=== PATIENT | male | born 1980 | race American Indian/Alaskan Native ===

== ENCOUNTER 2019-08-13 09:40 | Emergency (ER) | payer SELFPAY ==
[2019-08-13 11:48] VITALS: BP 137/92
--- NOTE | 2019-08-13 11:52 | Emergency Department Report ---
Chief Complaint: Upper Respiratory Infection Stated Complaint: COVID EXPOSURE Time Seen by Provider: 08/13/19 11:46 - HPI History of Present Illness: Patient is a 39-year-old male who presents emergency room with complaints of generalized weakness, generalized fatigue, body aches, headache that began 2 days ago. He denies any fever, nausea, vomiting, diarrhea, chest pain, shortness of breath. He states that someone at his job has tested positive for COVID-19 and he was in contact with that person. He denies any past medical history. He states he last had a physical with his primary care doctor approximately a year ago and everything was normal. He denies any allergies to medications. He is a non-smoker. Vitals are stable Vitals were repeated 1 hour apart He has normal oxygen saturation, no tachycardia, afebrile Patient is maintaining sats on room air without difficulty on exam: Non toxic appearing, no acute distress atraumatic, normocephalic normal appearance of the eyes, PERRL, EOMI, no periorbital edema or ecchymosis moist mucus membranes, normal oropharynx, no tonsillar hypertrophy or exudates, normal nasal turbinates, normal TMs and canals bilaterally regular heart rate and rhythm, no gallops, no rubs, no murmurs breath sounds are clear bilaterally, no w/r/r, no stridor, no respiratory distress, no accessory muscle use A&O x4, no focal neuro deficit skin is warm, dry, intact Patient is presenting with viral-like symptoms He has no past medical history, his vitals are normal, he is a non-smoker, he is not obese Patient does not meet hospital protocol for testing or for admission He has no clinical signs of dehydration, he has no clinical signs of bacterial pneumonia Patient has had contact with a COVID-19 positive person Symptoms could be very likely related to COVID-19 as he has had a positive contact and we are currently in a COVID-19 pandemic Discussed supportive care and symptomatic treatment with patient Discussed in detail with patient strict return precautions, discussed self quarantine Patient referred to a primary care doctor Medical screening exam mentation performed and there is no threat to life or limb at this time - Exam Vital Signs: Vital Signs 08/13/19 10:09 Temperature 99.7 F H Pulse Rate 85 Respiratory 20 Rate Blood Pressure 133/81 O2 Sat by Pulse 98 Oximetry MSE screening note: Focused history and physical exam performed. ED Disposition for MSE Clinical Impression: Viral syndrome, Exposure to COVID-19 virus Disposition: Z- MED SCREENING EXAM-LEFT Is pt being admited?: No Does the pt Need Aspirin: No Condition: Stable Instructions: COVID-19, Viral Syndrome (ED) Additional Instructions: Please increase your water intake over the next several days. May take Tylenol as needed for headache or body aches or fever please follow-up with a primary care doctor in the next 2 to 3 days for reexamination. Return to emergency room immediately for any new or worsening symptoms including but not limited to difficulty breathing, shortness of breath, severe chest pain, unable to tolerate by mouth intake, etc. Please self quarantine for 2 weeks from the onset of your symptoms. Please do not go on public. If you are at home around others please wear a mask. If you need to cough or sneeze please do so in a napkin immediately throw it away and wash your hands, wash your hands frequently, wipe everything down. Please consider getting COVID-19 testing either by primary care doctor, health department, [facility] or [email or web address] drive-through centers. Referrals: TSERING ARTEAGA MD [Staff Physician] - 2-3 Days [facility] [Provider Group] - 2-3 Days [facility] [Outside] - 2-3 Days Forms: Work/School Release Form(ED) Time of Disposition: 11:47 Print Language: ROMANSH
== END 2019-08-13 11:59 | disposition left against medical advice (07) ==
LOC: ED 09:40
DX: B34.9 Viral infection, unspecified (principal); Z20.828 Contact with and (suspected) exposure to other viral communicable diseases; Z53.21 Procedure and treatment not carried out due to patient leaving prior to being seen by health care provider
CPT/HCPCS: 99282